=== PATIENT | female | born 1970 | race Caucasian/White ===

== ENCOUNTER → 2017-02-28 | Day surgery (SDC) | payer OTHER ==
[~2017-02-28] VITALS: Ht 156.2 cm; Wt 74.5 kg
[~2017-02-28] MED LIST: ACETAMINOPHEN 325 MG TAB PO PRN; ADENOSINE IV SOLN 3 MG/ML 20 ML VIAL ONE; ASPCH81X PO; ATROPINE SULFATE 0.1 MG/ML 5ML SYR IV PRN; ERGO500037 PO; HEPARIN SOD (PORCINE) 1000 UNIT/ML 10 ML VIAL ONE; INSPMPNVLG; IRBE-43 PO; ISOS60TA2 PO; LEVO75TA5 PO; MIDAZOLAM HCL 1 MG/ML 2ML VIAL ONE; ONDA4TAB65 PO; ONDANSETRON INJ 2 MG/ML 2 ML VIAL IV PRN; PANT40TA PO; PROB1TAB16 PO; PROM12.56 PO; ROSU40TA PO; SIMV10TA5 PO; SODIUM CHLORIDE 0.9% 1000ML 250 ML IV PRN; ZCR40 PO
[2017-02-28 07:12] VITALS: Ht 156.2 cm; Wt 74.5 kg
[2017-02-28 07:15] VITALS: BP 148/71; PULSE 75; TEMP 36.4; O2SAT 100
[2017-02-28] MEDS: FENTANYL CITRATE INJ 50 MCG/1 ML 2 ML VIAL ONE ×2 (08:14→09:23)
--- NOTE | 2017-02-28 09:11 | History & Physical Bridge Note ---
H&P Re-Evaluation Bridge Note: I have examined the patient, reviewed the History & Physical and in the interval since the performance of the History & Physical I have noted the following changes of clinical significance: No changes noted
--- NOTE | 2017-02-28 09:12 | Procedure Note ---
Pre-Mod Sedation Assessment General Date of Moderate Sedation: Feb 28, 2017. Vital Signs: Vital Signs Past 12 Hours Date Time Temp Pulse Resp B/P Pulse Ox O2 Delivery O2 Flow Rate FiO2 02/28/17 07:15 36.4 75 16 148/71 100 Room Air Review Cardiovascular: regular rate, rhythm, no edema, no gallop Abdomen: normal bowel sounds, non tender, soft Lungs: chest non-tender, lungs clear Pre-Sedation Airway Assessment Oral Cavity: Capped Teeth, WNL Short Thick Neck: No Hx of Sleep Apnea: No Smoking Status: Never Smoker ASA Classification: Class III Procedure Planning Contraindications-for Mod Sed: None Yes Notes The planned sedation has been discussed with the patient and consent obtained. I have identified the patient, determined the appropriateness of sedation and have assessed the patient immediately prior to the procedure. All medicine(s) and interventions are by my order.
--- NOTE | 2017-02-28 09:38 | Cardiac Catheterization ---
Procedure Note Procedure Date Feb 28, 2017. Pre-Procedure Diagnosis Cardiothoracic Symptom AUC Score 7 Post-Procedure Diagnosis Moderate CAD Procedure(s) Performed Coronary Angiography (Start Time 08, Stop time 09, Light sedation, Qualified observer Sandy Murphy RN), Left Heart Cath Rn Labor Delivery Dr. Kidd [employer] Security(s) Jose [employer] Estimated Blood Loss 5cc Medication(s) Fentanyl, Versed, Lidocaine 1% Summary of Findings Moderate ostial diagonal branch vessel stenosis. FFR 0.[address] Cho. Otherwise mild nonobstructive CAD. 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 ACC Data Cardiac Status Clinical evaluation leading to the procedure CAD Presntation: Stable angina Anginal Classification: CCS II Heart Failure: No Cardiogenic Shock w/in 24Hrs: No Cardiac Arrest w/in 24Hrs: No Imaging studies past 6 months: Yes Stress studies past 6 months: Yes Stress Testing w/SPECT MPI: Yes - Indeterminant Coronary Anatomy Dominant: Right Left Main (% Stenosis): Ostial (20% taper), Proximal (0%), Mid (0%), Distal (0% ) LAD (% Stenosis): Ostial (0%), Proximal (10%), Mid (diffuse 10-20%), Distal (10 %) D1 (% Stenosis): Ostial (40-50% ), Proximal (10%), Mid (10%), Distal (10%) Circumflex (% Stenosis): Ostial (0%), Proximal (10%), Mid (10%), Distal (10%) OM1 (% Stenosis): Ostial (large vessel with 0% ostial), Proximal (20%), Mid (10 %), Distal (10%) RCA (% Stenosis): Normal R PDA (% Stenosis): Normal R PL1 (% Stenosis): Normal Diagnostic Status: Elective Closure Device Percutaneous Entry Location: Femoral Closure Device: none - manual hold Recommendations: Medical therapy and/or Counseling (Add imdur 30mg daily) Intraprocedure Events Significant Dissection: No Perforation: No
--- NOTE | 2017-02-28 09:39 | Procedure Note ---
Post-Mod Sedation Assessment General Date of Moderate Sedation Feb 28, 2017. Vital Signs: Vital Signs Past 12 Hours Date Time Temp Pulse Resp B/P Pulse Ox O2 Delivery O2 Flow Rate FiO2 02/28/17 07:15 36.4 75 16 148/71 100 Room Air Review - Discharge Criteria Vital Signs Stable: Yes Alert/Oriented/Conversant: Yes Returned to Baseline Mental St: Yes Nausea Absent/Minimal: Yes Pain/Discomfort/Absent/Minimal: Yes Normal/Baseline Respirations: Yes Active Bleeding?: No Pt Received D/C Instructions: Yes Prescriptions Given: Transmitted Specific Proced. D/C Criteria Distal Pulses Present (Cardiac: Yes Groin site assessed-Card Cath: Yes Voided Prior To Discharge: Yes Discharged Patients Adult Escort/Transportation: Yes
--- NOTE | 2017-02-28 12:00 | Discharge Instructions ---
Discharge Instructions Procedure Procedure Date: Feb 28, 2017. Reason for Visit: Chest Pain, Left Side, [place] Doing. Discharge Discharge Date: Feb 28, 2017. Discharge Diagnosis: moderate branch vessel cad (ostial diagonal) Last Recorded Wt (Kilograms): 74.5 Anesthesia Post Anesthesia Instructions: If you have had General Anesthesia or IV Sedation: * Do not drive today. * Resume driving when surgeon permits. * Do not make important decisions or sign legal documents today. * Call surgeon for: 1. Temperature elevations greater than 101 degrees F. 2. Uncontrollable pain. 3. Excessive bleeding. 4. Persistent nausea and vomiting. 5. Medication intolerance (nausea, vomiting or rash). * For nausea and vomiting use only clear liquids such as: tea, soda, bouillon until nausea subsides, then gradually increase diet as tolerated. * If you have any concerns or questions, call your surgeon's office. If physician is unavailable and it is an emergency, call 911 or go to the nearest emergency room. Instructions Activity Recommendations: limitations as noted below Return to School/Work: with the following limitations Recommended Home Diet: low cholesterol, diabetes diet Allergies: Coded Allergies: Atorvastatin (Unverified Allergy, Unknown, Muscle pains, 02/28/17) Provider Instructions ACTIVITY RECOMMENDATIONS: It is common to feel weak and fatigue for a few days. * Do not drive or operate any motorized equipment for the next three days. * Limit stair usage (2 or 3 trips a day only) for the next three days. * Do not lift anything heavier than 10 pounds for the next three days. * Do not engage in vigorous exercise or any sports for the next five days. * You may shower the day after your procedure, but do not immerse the area for three days. Cleanse the site gently with soap and water. SPECIAL CARE INSTRUCTIONS: * You may replace the pressure dressing or band-aid the morning after the procedure. * After your procedure, it is normal to have a small bruise or small lump at the site. Examine your site daily for any change in the bruise or lump, redness, swelling, drainage or numbness. Notify your doctor if any change. BLEEDING: * If there is a small amount of bleeding at the site, lie down and apply firm pressure with a clean cloth for ten minutes. When the bleeding stops, lie quietly keeping the procedure limb straight for six hours. Notify your doctor as soon as possible. * If the bleeding does not stop after ten minutes or if there is a large amount of bleeding or spurting, call 911 immediately. Continue to lie down and hold firm pressure until help arrives. SKIN IRRITATION: * You may experience some redness and/or swelling in the area where radiation was administered. If any skin irritation occurs, please contact your family physician. FOLLOW UP VISIT: Keep any scheduled doctor appointments. Follow Up Follow-up with: Ship Loader in 1-2 weeks. Jason Brooks Recommendations: Call your doctor if: * Temperature above 101 degrees * Pain not relieved by pain medicine ordered * There is increased drainage or redness from any incision * You have any unanswered questions or concerns. Your Doctors Instructions noted above were prepared by provider Issa Kidd. Patient Signature Section: Patient Instructions Signature Page Yuly Letha Patient (or Guardian) Signature/Date: I have read and understand the instructions given to me by my caregivers. Caregiver/RN/Doctor Signature/Date: The above-named patient and/or guardian has received patient instructions on this date. + Original Patient Signature Page (only) stays with chart. Please make copy for patient.
[2017-02-28 17:45] VITALS: BP 151/76; PULSE 63; O2SAT 94
== END | disposition home or self-care (01) ==
LOC: C.CATH 06:58
PROVIDERS: ATTEND Internal Medicine Cardiovascular Disease
DX: I25.10 Atherosclerotic heart disease of native coronary artery without angina pectoris (principal); E10.9 Type 1 diabetes mellitus without complications; I10 Essential (primary) hypertension; E03.9 Hypothyroidism, unspecified; E78.5 Hyperlipidemia, unspecified; G43.909 Migraine, unspecified, not intractable, without status migrainosus